=== PATIENT | female | born 1955 | race Caucasian/White ===

== ENCOUNTER 2024-08-13 06:55 | Day surgery (SDC) | payer MEDICARE, BC ==
[2024-08-13] MEDS ORDERED: Lidocaine 2% 100 MG/5 ML Syringe IVPUSH ONE (06:56)
[2024-08-13] MEDS ORDERED: Propofol 200 MG/20 ML SDV IV ONE (06:56)
[2024-08-13] MEDS ORDERED: Midazolam 1 MG/ML 2 ML SDV IV ONE (06:56)
[2024-08-13] MEDS ORDERED: Sodium Chloride 0.9% 10 ML Syringe FLUSH PRN (07:00)
[2024-08-13] MEDS: Lactated Ringers 1,000 ML IV SCH (07:44)
[2024-08-13] MEDS: Simethicone Drops 40 MG/0.6 ML 30 ML Bottle ONE (08:29)
== END 2024-08-13 09:45 | disposition home or self-care (01) ==
LOC: FB.SDS 06:55
PROVIDERS: ATTEND Surgery
DX: Z12.11 Encounter for screening for malignant neoplasm of colon (principal); K57.30 Diverticulosis of large intestine without perforation or abscess without bleeding; K62.89 Other specified diseases of anus and rectum; K42.9 Umbilical hernia without obstruction or gangrene; J45.909 Unspecified asthma, uncomplicated; Z87.891 Personal history of nicotine dependence; Z79.899 Other long term (current) drug therapy
CPT/HCPCS: 00812; A9270-GY; J2250; J2704; J7120